=== PATIENT | male | born 1950 | race Caucasian/White ===

== ENCOUNTER → 2022-08-19 | Outpatient (CLI) | payer MEDICARE, OTHER ==
--- NOTE | 2022-08-19 14:27 | Diagnostic Imaging Report ---
INDICATION: Followup orthopedic assessment COMPARISON: 07/17/2022 and 10/28/2018 TECHNIQUE: 3 radiographs of the left ankle dated 08/19/2022 FINDINGS: Lateral plate and screw fixation of the distal fibula is again noted without evidence of hardware complication. Calcifications adjacent to the tip of the medial malleolus are again identified, unchanged since the prior examination. The talar dome is unremarkable. Stable foreshortening of the talus. Pes planus deformity is noted. Tiny plantar calcaneal enthesophyte. No acute fracture or dislocation. No suspicious radiopaque foreign body. IMPRESSION: Stable calcifications adjacent to the tip of the medial malleolus, favored to relate to chronic fracture fragments. Dystrophic posttraumatic calcifications are an additional consideration. Stable plate and screw fixation of the distal fibula without hardware complication. 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 Pes planus deformity of the foot. Dictated by: Dictated on workstation # [id number]
== END ==
LOC: ORTHO 10:00
PROVIDERS: ATTEND Orthopaedic Surgery
DX: M21.42 Flat foot [pes planus] (acquired), left foot (principal)
CPT/HCPCS: 73610; G0463; 99212